=== PATIENT | male | born 1980 | race Caucasian/White ===

== ENCOUNTER 2022-11-12 19:51 | Emergency (ER) | payer MEDICAID, OTHER ==
[~2022-11-12] VITALS: Ht 190.5 cm; Wt 141.0 kg
[2022-11-12] MEDS ORDERED: LORAZEPAM 2MG/ML CPJ IV ONE (21:00)
[2022-11-12 21:52] LABS: CHLORIDE 103 mEq/L (98-107)
[2022-11-12 21:58] LABS: BASOPHILS % 0.8 % (0.0-2.0); EOSINOPHILS % 2.9 % (0.0-5.0); HEMATOCRIT. 33.6 % (42.0-52.0); HEMOGLOBIN. 11.3 g/dL (14.0-18.0); LYMPHOCYTES % 22.9 % (20.0-50.0); MEAN CORPUSCULAR HEMOGLOBIN 28.1 pg (28.0-32.0); MEAN CORPUSCULAR VOLUME 83.8 fL (80.0-94.0); MEAN PLATELET VOLUME 7.6 fl (7.4-10.4); MONOCYTES % 7.7 % (2.0-8.0); NEUTROPHILS % 65.7 % (40.0-76.0); PLATELET 283 x1000/uL (130-400); RED BLOOD CELL COUNT 4.01 mill/uL (4.7-6.1); RED CELL DISTRIBUTION WIDTH 16.3 % (11.6-14.6)
[2022-11-12 22:01] LABS: ETHANOL BLOOD < 10 mg/dL
[2022-11-12] MEDS ORDERED: ASPI-1497 MT (23:08)
[2022-11-12] MEDS: ASPIRIN 81MG TABLET PO NR (23:30)
[2022-11-12 23:45] VITALS: BP 130/76
== END 2022-11-13 | disposition home or self-care (01) ==
LOC: ER 19:51
DX: R07.89 Other chest pain (principal); R05.9 Cough, unspecified; F17.210 Nicotine dependence, cigarettes, uncomplicated; F32.A Depression, unspecified; F41.9 Anxiety disorder, unspecified; E11.9 Type 2 diabetes mellitus without complications; Z86.718 Personal history of other venous thrombosis and embolism; Z79.01 Long term (current) use of anticoagulants; Z91.018 Allergy to other foods; Z79.82 Long term (current) use of aspirin
CPT/HCPCS: 36415; 71045; 80053; 80307; 80320; 80329; 82962; 83690; 84484; 85025; 93005; 96374; 99285; C1893; J2060; Z7610; G0480

== ENCOUNTER 2023-02-10 05:43 | Emergency (ER) | payer MEDICAID ==
[~2023-02-10] VITALS: Ht 177.8 cm; Wt 91.0 kg
[~2023-02-10 05:43] MED LIST: ASPI-1497 MT
[2023-02-10 05:45] VITALS: BP 118/68; PULSE 88; RESP 16; TEMP 98.3; O2SAT 100
[2023-02-10 08:49] LABS: CLARITY URINE CLOUDY (CLEAR); COLOR URINE DARK YELLOW (YELLOW); KETONES URINE NEGATIVE (NEGATIVE); LEUKOCYTE ESTERASE URINE NEGATIVE (NEGATIVE); NITRITE URINE NEGATIVE (NEGATIVE); OCCULT BLOOD URINE NEGATIVE (NEGATIVE); PH URINE 5.5 (4.5-8.0); PROTEIN URINE TRACE (NEGATIVE); SPECIFIC GRAVITY URINE 1.033 (1.005-1.030)
[2023-02-10 09:09] LABS: *AMPHETAMINES SCREEN URINE PRESUMTIVE POSITIVE (NEGATIVE); *BARBITURATES SCREEN URINE NEGATIVE (NEGATIVE); *BENZODIAZEPINES SCREEN URINE NEGATIVE (NEGATIVE); *COCAINE SCREEN URINE NEGATIVE (NEGATIVE); CANNABINOID URINE SCREEN PRESUMTIVE POSITIVE (NEGATIVE); METHADONE URINE SCREEN NEGATIVE (NEGATIVE); OPIATES URINE SCREEN NEGATIVE (NEGATIVE); PHENCYCLIDINE URINE SCREEN PRESUMTIVE POSITIVE (NEGATIVE)
[2023-02-10 09:36] LABS: BASOPHILS % 0.7 % (0.0-2.0); EOSINOPHILS % 2.7 % (0.0-5.0); HEMOGLOBIN. 12.5 g/dL (14.0-18.0); LYMPHOCYTES % 25.4 % (20.0-50.0); MEAN PLATELET VOLUME 6.8 fl (7.4-10.4); MONOCYTES % 5.5 % (2.0-8.0); NEUTROPHILS % 65.7 % (40.0-76.0); PLATELET 333 x1000/uL (130-400); RED BLOOD CELL COUNT 4.64 mill/uL (4.7-6.1); RED CELL DISTRIBUTION WIDTH 15.8 % (11.6-14.6)
[2023-02-10 09:38] LABS: CHLORIDE 105 mEq/L (98-107)
[2023-02-10 09:48] LABS: ETHANOL BLOOD < 10 mg/dL (-10)
== END 2023-02-10 12:08 | disposition home or self-care (01) ==
LOC: ER 05:56
DX: R44.3 Hallucinations, unspecified (principal); F41.9 Anxiety disorder, unspecified; F32.9 Major depressive disorder, single episode, unspecified; E11.9 Type 2 diabetes mellitus without complications; F12.10 Cannabis abuse, uncomplicated; F15.10 Other stimulant abuse, uncomplicated
CPT/HCPCS: 36415; 73560; 80053; 80305; 80307; 80320; 80329; 81003; 85025; 99284; G0480

== ENCOUNTER 2024-05-24 13:36 | Emergency (ER) | payer MEDICAID ==
[~2024-05-24] VITALS: Ht 190.5 cm; Wt 122.0 kg
[2024-05-24 13:48] VITALS: BP 128/96; PULSE 64; RESP 14; TEMP 98.4; O2SAT 98
[2024-05-24] MEDS: LIDOCAINE HCL/EPINEPHRINE 1%-EPI 1:100,000 20ML VIAL INFIL ONE (14:03)
== END 2024-05-24 14:28 | disposition home or self-care (01) ==
LOC: ER 13:42
DX: L02.416 Cutaneous abscess of left lower limb (principal); F12.10 Cannabis abuse, uncomplicated; F15.10 Other stimulant abuse, uncomplicated; E11.9 Type 2 diabetes mellitus without complications; F41.9 Anxiety disorder, unspecified; F32.A Depression, unspecified; Z79.82 Long term (current) use of aspirin; Z98.890 Other specified postprocedural states
CPT/HCPCS: 10060; 99284; J3490; Z7610 ×4